=== PATIENT | female | born 1935 | race Caucasian/White ===

== ENCOUNTER 2017-04-04 18:42 | Emergency (ER) | payer OTHER ==
[~2017-04-04] VITALS: Ht 167.6 cm; Wt 76.2 kg
[~2017-04-04 18:42] MED LIST: AMIT25 PO; AMLO5 PO; ATEN50; BAYER CHEWABLE81 MG PO; BP MEDS; CARB100ER PO; CEPH500 PO; CODASP30; CYCL10 PO; DIURETIC; EYE HEALTH ADU1 EACH PO; HYDACE5 PO; HYDCHL25 PO; Hair, Skin & N1 EACH PO; LISI10; Melatonin5 MG PO; Vitamin C100 M1 PO; ZESTORETIC 20-121 EA
[2017-04-04 19:11] LABS: BASOPHILS ABSOLUTE AUTO 0.02 K/mm3 (0.00-0.23); BASOPHILS PERCENT AUTO 0 % (0-2); EOSINOPHILS ABSOLUTE AUTO 0.05 K/mm3 (0.00-0.68); EOSINOPHILS PERCENT AUTO 1 % (0-6); Hematocrit 42.7 % (33.0-51.0); Hemoglobin 14.7 g/dL (11.5-16.0); IMMATURE GRAN ABSOLUTE AUTO 0.02 K/mm3 (0.00-0.10); IMMATURE GRAN PERCENT AUTO 0 % (0-1); LYMPHOCYTES PERCENT AUTO 12 % (21-46); MONOCYTES ABSOLUTE AUTO 0.56 K/mm3 (0.16-1.47); MONOCYTES PERCENT AUTO 7 % (4-13); Mean Corpuscular HGB 34.9 pg (26.0-34.0); Mean Corpuscular HGB Conc 34.4 g/dL (31.5-36.5); Mean Corpuscular Volume 101 fL (80-100); Mean Platelet Volume 9.7 fL (9.1-12.4); NEUTROPHILS ABSOLUTE AUTO 6.93 K/mm3 (1.96-9.15); NEUTROPHILS PERCENT AUTO 81 % (41-73); Platelet Count 258 K/mm3 (150-400); RDW Standard Deviation 43.9 fL (35.1-46.3); Red Blood Cell Count 4.21 M/mm3 (3.80-5.20); White Blood Cell Count 8.58 K/mm3 (4.00-11.30)
[2017-04-04 19:23] LABS: International Normalized Ratio 1.15
[2017-04-04 19:30] LABS: Alanine Aminotransfer (ALT/SGP 120 U/L (12-78); Albumin, Blood 3.1 g/dL (3.4-5.0); Albumin/Globulin Ratio 0.8 (0.8-1.8); Alk Phos 111 U/L (50-136); Anion Gap 8 mmol/L (6-16); Aspartate Aminotrans (AST/SGOT 208 U/L (12-37); Bilirubin, Total 1.2 mg/dL (0.1-1.0); Blood Urea Nitrogen 18 mg/dL (8-24); Bun/Creatinine Ratio 33.3 (12.0-20.0); CO2, Blood 30 mmol/L (21-32); Calcium, Blood 9.6 mg/dL (8.5-10.1); Chloride, Blood 96 mmol/L (98-108); Creatinine, Blood 0.54 mg/dL (0.40-1.00); Globulin, Blood 3.9 g/dL (2.2-4.0); Glomerular Filtration Rate >60 (60-); Glucose, Blood 136 mg/dL (70-99); Potassium, Blood 3.1 mmol/L (3.5-5.5); Sodium, Blood 134 mmol/L (136-145); Troponin I <0.015 ng/mL (0.000-0.040)
[2017-04-04 20:08] LABS: Source, Urine Catheter
[2017-04-04 20:12] LABS: Bilirubin, Urine Neg (Neg); Blood, Urine Neg (Neg); Glucose Qualitative, Urine Neg (Neg); Ketones, Urine 1+ (Neg); Leukocyte Esterase, Urine Neg (Neg); Nitrite, Urine Neg (Neg); Protein, Urine Neg (Neg); Specific Gravity, Urine 1.015 (1.003-1.022); Urobilinogen, Urine NORM (Normal)
[2017-04-04 20:17] LABS: Appearance, Urine Clear (Clear); Color, Urine Yellow (P-Yellow)
[2017-12-16] MEDS ORDERED: ZESTORETIC 20-121 EA PO (17:16)
[2017-12-16] MEDS ORDERED: CLOB.05TO TOP (17:17)
[2017-12-16] MEDS ORDERED: MAGNESIUM PO (17:17)
[2018-01-14] MEDS ORDERED: ASPI325 PO (07:07)
[2018-01-14] MEDS ORDERED: OXYC5 PO (07:15)
[2018-01-15] MEDS ORDERED: MUPI1NAS (08:03)
== END 2017-04-05 00:40 | disposition short-term general hospital (02) ==
LOC: ER 18:42
PROVIDERS: Physician Assistant
DX: K80.70 Calculus of gallbladder and bile duct without cholecystitis without obstruction (principal); I10 Essential (primary) hypertension; Z79.899 Other long term (current) drug therapy; Z79.82 Long term (current) use of aspirin; Z95.0 Presence of cardiac pacemaker; Z96.649 Presence of unspecified artificial hip joint
CPT/HCPCS: 36415; 74176; 80053; 81003; 83605; 84484; 85025; 85610; 87040; 87086; 93005; 93010; 96365; 96366; 96368; 96375; 99285; J1956; J2001; J2405; J3010; J3480; J7050

== ENCOUNTER 2019-01-08 06:04 | Day surgery (SDC) | payer OTHER ==
[~2019-01-08] VITALS: Ht 162.6 cm; Wt 79.3 kg
[~2019-01-08 06:04] MED LIST changes: +ASPI325 PO; +Aspir 8181 MG PO; +CLOB.05TO TOP; +MAGNESIUM PO; +MUPI1NAS; +OXYC5 PO; +PRENATAL TABLE1 EAC2 PO; +Reclast 55 MG/100 M IV; +TUMS500 MG PO; +ZESTORETIC 20-121 EA PO
--- NOTE | 2019-01-08 06:49 | NUR ---
INTO SDS IN WC. VSS ALERT ORIENTED NO FAMILY WITH PATIENT STATES MAY COME IN LATER.
--- NOTE | 2019-01-08 15:10 | NUR ---
SHIFT SUMMARY S/P L TKA TODAY. VSS. PT RECEIVING PO PAIN MEDS AND SCHEDULED TORADOL AND TYLENOL FOR PAIN. AQUACEL DRESSING TO L KNEE IS CDI WITH POLAR PACK IN PLACE. PT WORKED WITH THERAPY AND IS UP IN CHAIR WITH BLE ELEVATED. PT VOIDING. IVF INFUSING PER ORDERS. PT SLOWLY TOLERATING REG FOODS. CALL LIGHT WITHIN REACH.
[2019-01-09 04:12] LABS: BASOPHILS ABSOLUTE AUTO 0.01 K/mm3 (0.00-0.23); BASOPHILS PERCENT AUTO 0 % (0-2); EOSINOPHILS PERCENT AUTO 0 % (0-6); Hemoglobin 11.5 g/dL (11.5-16.0); IMMATURE GRAN ABSOLUTE AUTO 0.02 K/mm3 (0.00-0.10); IMMATURE GRAN PERCENT AUTO 0 % (0-1); LYMPHOCYTES PERCENT AUTO 10 % (21-46); MONOCYTES ABSOLUTE AUTO 0.91 K/mm3 (0.16-1.47); MONOCYTES PERCENT AUTO 10 % (4-13); Mean Corpuscular HGB Conc 33.8 g/dL (31.5-36.5); Mean Corpuscular Volume 103 fL (80-100); Mean Platelet Volume 9.8 fL (9.1-12.4); NEUTROPHILS ABSOLUTE AUTO 7.48 K/mm3 (1.96-9.15); NEUTROPHILS PERCENT AUTO 80 % (41-73); Platelet Count 148 K/mm3 (150-400); RDW Coefficient Variation 12.2 % (11.7-14.2); RDW Standard Deviation 46.5 fL (35.1-46.3); Red Blood Cell Count 3.29 M/mm3 (3.80-5.20); White Blood Cell Count 9.32 K/mm3 (4.00-11.30)
[2019-01-09 04:28] LABS: Anion Gap 6 mmol/L (6-16); Blood Urea Nitrogen 20 mg/dL (8-24); Bun/Creatinine Ratio 28.9 (12.0-20.0); CO2, Blood 29 mmol/L (21-32); Calcium, Blood 7.8 mg/dL (8.5-10.1); Chloride, Blood 104 mmol/L (98-108); Creatinine, Blood 0.69 mg/dL (0.40-1.00); Glomerular Filtration Rate >60 (60-); Glucose, Blood 128 mg/dL (70-99); Magnesium, Blood 2.1 mg/dL (1.6-2.4); Potassium, Blood 3.7 mmol/L (3.5-5.5); Sodium, Blood 139 mmol/L (136-145)
--- NOTE | 2019-01-09 05:18 | NUR ---
patient alert and oriented x4. VSS. Saline locked. Mild complaints of pain to R knee. Ambulating to bathroom with FWW. Polar ice applied to R knee. Medicated as ordered. Call light within reach. Patient rested comfortably.
[2019-01-09] MEDS ORDERED: ACET500 PO (13:20)
[2019-01-09] MEDS ORDERED: OXYC5 PO (13:20)
--- NOTE | 2019-01-09 19:36 | NUR ---
SHIFT SUMMARY PAIN HAS BEEN MANAGED WITH PO PAIN MEDICATION. VENOUS DUPLEX SCAN TO RULE OUT DVT WAS COMPLETED LATE THIS AFTERNOON, TEST WAS ORDERED STAT. PT IS A 1 ASSIST WHEN OOB. FAMILY WAS UNABLE TO PICK PRESCRIPTION UP IN TIME TO GET TO THE PHARMACY. DR. WILLAMS NOTIFIED AND DISCHARGE CANCELLED FOR TODAY. REPORT GIVEN TO NURA NAM.
--- NOTE | 2019-01-10 04:50 | NUR ---
SHIFT SUMMARY PT POD#2 LEFT TKA. AAOX4. DISCOMFORT CONTROLLED WITH 5MG PO ROXICODONE Q4P. NO NAUSEA/EMESIS. DRESSING TO LEFT KNEE C/D/I. PT UP TO RESTROOM SBA WITH FWW, TOLERATES WELL. PT RESTED WELL T/O NIGHT. ENCOURAGE AMBULATION TODAY TOLERATED. PT RESTING AT THIS TIME, CALL LIGHT IN REACH.
--- NOTE | 2019-01-10 12:41 | NUR ---
DISCHARGE DR. WILLAMS ROUNDED ON PT PRIOR TO DISCHARGE. PT WAS GIVEN DISCHARGE INSTRUCTIONS YESTERDAY AND DENIED NEED FOR STAFF TO REVIEW INSTRUCTIONS. PT ESCORTED OUT IN W/C.
--- NOTE | 2019-01-12 13:09 | NUR ---
01/12/19 1309 Koki Shah VERIFICATIONS: EDIT CHART.
== END 2019-01-10 12:34 | disposition home or self-care (01) ==
LOC: ORSCMMR 06:04 → ORD 09:00 → ORSCMMR 09:00 → SURS 10:57 → ORSCMMR 01-10 12:34
PROVIDERS: Orthopaedic Surgery
PROC: 0SRD0J9 Replacement of Left Knee Joint with Synthetic Substitute, Cemented, Open Approach (ICD-10-PCS; principal; 2019-01-08 07:30)
DX: M17.12 Unilateral primary osteoarthritis, left knee (principal); I10 Essential (primary) hypertension; I49.9 Cardiac arrhythmia, unspecified; Z95.0 Presence of cardiac pacemaker; Z79.899 Other long term (current) drug therapy; Z79.82 Long term (current) use of aspirin
CPT/HCPCS: 36415; 73560-LT; 80048; 83735; 85025; 88300; 93971; 97116; 97161; 97530; C1713; C1776; J0171; J0690; J0735; J1100; J1885; J2250; J2405; J2704; J2795; J3010; J3370; J7120; Q0163

== ENCOUNTER 2020-09-09 09:17 | Inpatient (IN) | payer OTHER ==
[~2020-09-09] VITALS: Ht 172.7 cm; Wt 77.0 kg
[~2020-09-09 09:17] MED LIST changes: +ACET500 PO
[2020-09-09 09:35] LABS: Calcium, Ionized (POC) 1.01 mmol/L (1.10-1.46); Chloride (POC) 99 mmol/L (98-108); Creatinine (POC) 3.4 mg/dL (0.6-1.0); Glucose (ISTAT POC) 135 mg/dL (70-99); Hemoglobin (POC) 16.7 g/dL (12.0-16.0); Potassium (POC) 3.3 mmol/L (3.5-5.5); Sodium (POC) 133 mmol/L (135-148); Total CO2 (POC) 15 mmol/L (21-32)
[2020-09-09 09:39] LABS: Base Excess Venous -21.3 mmol/L; Bicarbonate Venous 10.6 mmol/L (24.0-30.0); PCO2 Venous 31.9 mmHg (38-42); PO2 Venous 173 mmHg (38-42)
[2020-09-09 09:40] LABS: pH Blood Venous 7.06 (7.34-7.37)
[2020-09-09 09:46] LABS: Hematocrit 49.3 % (33.0-51.0); Hemoglobin 16.2 g/dL (11.5-16.0); Mean Corpuscular HGB 33.4 pg (26.0-34.0); Mean Corpuscular HGB Conc 32.9 g/dL (31.5-36.5); Mean Corpuscular Volume 102 fL (80-100); Mean Platelet Volume 11.1 fL (9.1-12.4); NRBC ABSOLUTE 0.02 K/mm3 (0.00-0.02); NRBC Auto 0.3 /100 WBC (0.0-0.2); Platelet Count 133 K/mm3 (150-400); Red Blood Cell Count 4.85 M/mm3 (3.80-5.20); White Blood Cell Count 7.22 K/mm3 (4.00-11.30)
[2020-09-09 09:53] LABS: Source, Urine Catheter
[2020-09-09 10:03] LABS: Appearance, Urine Clear (Clear); Bilirubin, Urine Neg (Neg); Blood, Urine 2+ (Neg); Color, Urine Yellow (P-Yellow); Glucose Qualitative, Urine 1+ (Neg); Ketones, Urine 1+ (Neg); Leukocyte Esterase, Urine 1+ (Neg); Nitrite, Urine Neg (Neg); Protein, Urine 2+ (Neg); Urobilinogen, Urine 1+ (Normal)
[2020-09-09 10:14] LABS: BAND PERCENT MAN 45 % (0-8); BASOPHILS PERCENT MAN 0 % (0-2); EOSINOPHILS PERCENT MAN 0 % (0-6); LYMPHOCYTES ABSOLUTE MAN 0.93 K/mm3 (0.84-5.20); LYMPHOCYTES PERCENT MAN 13 % (21-46); METAMYELOCYTE ABSOLUTE MAN 0.14 K/mm3 (0.00-0.00); METAMYELOCYTE PERCENT MAN 2 % (0-0); MONOCYTES ABSOLUTE MAN 0.28 K/mm3 (0.16-1.47); MONOCYTES PERCENT MAN 4 % (4-13); MYELOCYTE ABSOLUTE MAN 0.14 K/mm3 (0.00-0.00); MYELOCYTE PERCENT MAN 2 % (0-0); SEG NEUTROPHILS PERCENT MAN 34 % (41-73); TOTAL CELLS COUNTED 100
[2020-09-09 10:17] LABS: Alanine Aminotransfer (ALT/SGP 61 U/L (12-78); Albumin/Globulin Ratio 0.5 (0.8-1.8); Alk Phos 112 U/L (50-136); Anion Gap 25 mmol/L (6-16); Aspartate Aminotrans (AST/SGOT 150 U/L (12-37); Bilirubin, Total 1.4 mg/dL (0.1-1.0); Blood Urea Nitrogen 51 mg/dL (8-24); Bun/Creatinine Ratio 19.2 (12.0-20.0); CO2, Blood 12 mmol/L (21-32); Calcium, Blood 8.8 mg/dL (8.5-10.1); Chloride, Blood 96 mmol/L (98-108); Creatinine, Blood 2.65 mg/dL (0.40-1.00); Ethanol (Alcohol), Blood, Med <3 mg/dL; Globulin, Blood 4.3 g/dL (2.2-4.0); Glomerular Filtration Rate 18 (60-); Glucose, Blood 138 mg/dL (70-99); Potassium, Blood 3.3 mmol/L (3.5-5.5); Sodium, Blood 133 mmol/L (136-145); Total Protein, Blood 6.3 g/dL (6.4-8.2); Troponin I 0.218 ng/mL (0.000-0.040)
[2020-09-09 10:19] LABS: CPK Creatine Kinase 2596 U/L (26-193)
[2020-09-09 10:23] LABS: Red Blood Cells, Urine 0-2 /hpf (0-2)
[2020-09-09 10:24] LABS: Bacteria Few /hpf; Squamous Epithelial Cells Few /hpf (Few); WBC Cast 0-2 /lpf (0)
[2020-09-09 10:29] LABS: U Amphetamine Screen Not Detected; U Barbituate Screen Not Detected; U Benzodiazapine Screen Not Detected; U Buprenorphine Screen Not Detected; U Cannabinoids Screen Not Detected; U Cocaine Screen Not Detected; U Methadone Screen Not Detected; U Methamphetamine Screen Not Detected; U Opiates Screen DETECTED; U Oxycodone Screen Not Detected; U Phencyclidine Screen Not Detected; U Propoxyphene Screen Not Detected
[2020-09-09 10:29] LABS: International Normalized Ratio 1.57; Prothrombin Time Results 16.5 Sec (9.7-11.5)
[2020-09-09 10:48] LABS: Creatine Kinase MB Index 1.8 (0.0-4.0)
[2020-09-09] MEDS ORDERED: Lisinopril-Hct1 EAC4 PO (12:28)
[2020-09-09 12:30] LABS: Source, Urine Catheter
[2020-09-09 12:38] LABS: Appearance, Urine Turbid (Clear); Blood, Urine 5+ (Neg); Color, Urine Yellow (P-Yellow); Glucose Qualitative, Urine 1+ (Neg); Ketones, Urine 1+ (Neg); Leukocyte Esterase, Urine 1+ (Neg); Nitrite, Urine Pos (Neg); Protein, Urine 3+ (Neg); Urobilinogen, Urine 4+ (Normal)
[2020-09-09 12:47] LABS: Bilirubin, Urine 2+ (Neg)
[2020-09-09 12:54] LABS: Amorphous Light (0-Heavy); Bacteria Mod /hpf
[2020-09-09 12:56] LABS: Squamous Epithelial Cells Few /hpf (Few)
[2020-09-09 12:57] LABS: Renal Epithelial Few /hpf (0-Rare)
[2020-09-09 15:30] LABS: Hematocrit 37.7 % (33.0-51.0); Hemoglobin 12.3 g/dL (11.5-16.0); Mean Corpuscular HGB 33.1 pg (26.0-34.0); Mean Corpuscular HGB Conc 32.6 g/dL (31.5-36.5); Mean Corpuscular Volume 101 fL (80-100); Mean Platelet Volume 11.2 fL (9.1-12.4); NRBC ABSOLUTE 0.05 K/mm3 (0.00-0.02); NRBC Auto 0.7 /100 WBC (0.0-0.2); Platelet Count 109 K/mm3 (150-400); RDW Coefficient Variation 13.3 % (11.7-14.2); RDW Standard Deviation 50.1 fL (35.1-46.3); Red Blood Cell Count 3.72 M/mm3 (3.80-5.20); White Blood Cell Count 7.42 K/mm3 (4.00-11.30)
[2020-09-09 15:38] LABS: Base Excess Venous -16.7 mmol/L; Bicarbonate Venous 11.4 mmol/L (24.0-30.0); PCO2 Venous 59.3 mmHg (38-42); PO2 Venous 37.6 mmHg (38-42)
[2020-09-09 15:39] LABS: pH Blood Venous 6.99 (7.34-7.37)
[2020-09-09 15:53] LABS: BAND PERCENT MAN 21 % (0-8); BASOPHILS PERCENT MAN 0 % (0-2); EOSINOPHILS PERCENT MAN 0 % (0-6); LYMPHOCYTES % ATYPICAL MANUAL 2 % (0-0); LYMPHOCYTES ABSOLUTE MAN 1.26 K/mm3 (0.84-5.20); LYMPHOCYTES PERCENT MAN 15 % (21-46); METAMYELOCYTE ABSOLUTE MAN 1.55 K/mm3 (0.00-0.00); METAMYELOCYTE PERCENT MAN 21 % (0-0); MONOCYTES ABSOLUTE MAN 0.07 K/mm3 (0.16-1.47); MONOCYTES PERCENT MAN 1 % (4-13); MYELOCYTE ABSOLUTE MAN 0.29 K/mm3 (0.00-0.00); MYELOCYTE PERCENT MAN 4 % (0-0); NEUTROPHILS ABSOLUTE MAN 4.22 K/mm3 (1.96-9.15); SEG NEUTROPHILS PERCENT MAN 36 % (41-73); TOTAL CELLS COUNTED 100
[2020-09-09 16:01] LABS: Troponin I 0.313 ng/mL (0.000-0.040)
--- NOTE | 2020-09-09 16:05 | NUR ---
ADMIT PT ARRIVED TO ICU 2 AROUND 1330. PT ARRIVED OBTUNDED, GUPPY BREATHING ON THE NONREBREATHER, DARKLY MOTTLED FROM THE WAIST DOWN, LEVOPHED AND BICARB GTT INFUSING. DR. STERN TO THE BEDSIDE AND DECISION MADE TO INTUBATE. 10MG ETOMIDATE AND 10MG JESSIE GIVEN THEN PT INTUBATED AT 1356 WITH A 7.5 TUBE, 23CM AT THE LIP WITH GOOD COLOR CHANGE AND BILATERAL BREATH SOUNDS. DR. WOODALL TO THE BEDSIDE TO EVALUATE PT AND THEN ENDED UP PLACING A CENTRAL LINE SINCE DR. STERN WAS CALLED EMERGENTLY TO ANOTHER PT'S ROOM. ATTEMPTED TO PLACE OG AFTER CENTRAL LINE DONE, BUT IT WOULD NOT GO DOWN. KEPT HITTING SOMETHING AT THE BACK OF THE THROAT AND CURLING. MULTIPLE ATTEMPTS MADE BY THIS RN AND VIV SAEED TO PLACE OG BUT UNABLE. DR. STERN NOTIFIED AND OK WITH PT NOT HAVING OG AT THIS TIME. PROPOFOL STARTED PT STARTING TO BITE THE TUBE AND WINCE WITH OG PLACEMENT ATTEMPTS. LEVOPHED SLOWLY TITRATED UP AND IS CURRENTLY AT 14 MCG/MIN. AFTER MULTIPLE ATTEMPTS DR. WOODALL WAS ABLE TO CONTACT FAMILY AND PT'S SON CAME TO THE BEDSIDE. DR. WOODALL HAD VERY HONEST CONVERSATION WITH THEM ABOUT PT'S PROGNOSIS. PALLIATIVE CARE CALLED FOR FAMILY SUPPORT WELL. CONTINUING TO MONITOR. DR. WOODALL STILL DISCUSSING CASE WITH FAMILYTO DECIDE PLAN OF CARE.
[2020-09-09 16:19] LABS: Albumin, Blood 1.4 g/dL (3.4-5.0); Albumin/Globulin Ratio 0.4 (0.8-1.8); Bilirubin, Total 1.4 mg/dL (0.1-1.0); Bun/Creatinine Ratio 20.7 (12.0-20.0); Calcium, Blood 6.9 mg/dL (8.5-10.1); Creatinine, Blood 2.41 mg/dL (0.40-1.00); Globulin, Blood 3.2 g/dL (2.2-4.0); Potassium, Blood 4.9 mmol/L (3.5-5.5); Total Protein, Blood 4.6 g/dL (6.4-8.2)
--- NOTE | 2020-09-09 17:01 | NUR ---
Spiritual care visit conducted. Patient's spouse, Shakeel, is bedside and is emotional at times. We discuss the events that led to her hospitalization, their life together through the last 65 yrs, and about the trauma that he experienced while patient was down. I provide therapeutic listening, anticipatory grief support and a Last Rites sort of prayer (patient has a Orthodox background). Shakeel responds well and shows signs of increased peace. He states that he will wait to talk with his Middle son before any decisions are made. [employer] services remain available.
--- NOTE | 2020-09-09 19:25 | NUR ---
pt became ill and went to ER. family notified
--- NOTE | 2020-09-09 20:19 | NUR ---
SHIFT ASSESSMENT ASSUMED CARE OF PT @ 1900. BEDSIDE REPORT RECEIVED FROM VIV CRAIN. PT INTUBATED AND SEDATED. VENT SETTINGS AC: 24/350/70%/5 c O2 SATS >90%. PROPOFOL GTT INITIALLY @ 20MCG/KG/MIN, NOREPINEPHRINE @ 20MCG/MIN, VASOPRESSIN @ 0.04U/MIN c MAP >55. PROPOFOL RATE DECREASED TO 10MCG/KG/MIN DUE TO PERSISTENT HYPOTENSION. PT DOES NOT RESPOND TO STIMULI. NO VOLUNTARY BREATHS, PT RELYING ON THE VENTILATOR TO MAINTAIN RR. SKIN IS MOTTLED FROM HIPS DOWN. FAINT RADIAL PULSES, UNABLE TO PALPATE PEDAL PULSES. PTS HYPOTENSION CONTINUED AFTER PROPOFOL GTT WAS DECREASED. UNABLE TO OBTAIN A SYSTOLIC BP, ONLY A MAP. PTS CARDIAC RYTHM ALSO BEGAN CHANGING AT THIS TIME, RATE INCREASED FROM 60'S TO 120'S. DR STERN NOTIFIED, WE DISCUSSED TREATMENT PLANS AND DUE TO THE EXTENUATING CIRCUMSTANCES INVOLVING PTS PRIMARY DECISION MAKER, HER SPOUSE, PTS SON IS THE ALTERNATE DECISION MAKER. PTS SON, HAYLIE WAS CONTACTED. THIS NURSE DISCUSSED PTS WORSENING CONDITION WITH HAYLIE. HAYLIE SPOKE WITH FAMILY AND DECIDED TO TRANSITION PT STATUS TO DNR. DR STERN NOTIFIED, SHE AGREED WITH THIS DECISION. FRANCISCO, SIGN BUILDER SUPERVISOR ALSO SPOKE WITH HAYLIE TO CONFIRM THE TRANSITION TO DNR STATUS. THIS NURSE, CHARGE NURSE FRANCISCO, AND HOSPITALIST JACKI RETURNED TO PT ROOM WHERE PT WAS HAVING RUNS OF WIDE COMPLEX TACHYCARDIA, THEN BACK TO PACED RYTHM @ 60. WHEN RATE RETURNED TO 60, BP AND OXYGEN SATURATION WERE UNOBTAINABLE. THIS NURSE AND JACKI HOSPITALIST PALPATED FOR PULSE AND AUSCALTED THE HEART. TIME OF ANNOUNCED AT 1926 VIA HOSPITALISTJACKI. DUE TO PT HAVING A PACEMAKER, RAILROAD SIGNAL TECHNICIAN CONTINUED TO SHOW ELECTRICAL ATCTIVITY @ 60BPM. SON, HAYLIE NOTIFIED OF TOD. PALLIATIVE CARE NURSE LEV ASSISTING WITH FAMILY CARE. VIV SINGH NOTIFIED SENIOR LEAD SOFTWARE ENGINEER OF , CURRENTLY AWAITING CALL BACK. PLANS OF RELEASING BODY TO [facility], INFORMED HAYLIE OF THESE PLANS.
== END 2020-09-09 19:37 | DRG 871 ==
LOC: ER 09:17 → ICUW 11:55 → ICUE 12:57
PROVIDERS: Emergency Medicine; Internal Medicine Pulmonary Disease; ADMIT Internal Medicine
PROC: 5A1935Z Respiratory Ventilation, Less than 24 Consecutive Hours (ICD-10-PCS; principal; 2020-09-09)
PROC: 0BH17EZ Insertion of Endotracheal Airway into Trachea, Via Natural or Artificial Opening (ICD-10-PCS; 2020-09-09)
PROC: 06HY33Z Insertion of Infusion Device into Lower Vein, Percutaneous Approach (ICD-10-PCS; 2020-09-09)
PROC: 3E033XZ Introduction of Vasopressor into Peripheral Vein, Percutaneous Approach (ICD-10-PCS; 2020-09-09)
DX: A41.9 Sepsis, unspecified organism (principal); R65.21 Severe sepsis with septic shock; G92 Toxic encephalopathy; N17.0 Acute kidney failure with tubular necrosis; K55.019 Acute (reversible) ischemia of small intestine, extent unspecified; E87.1 Hypo-osmolality and hyponatremia; M62.82 Rhabdomyolysis; E87.2 Acidosis; Z51.5 Encounter for palliative care; Z66 Do not resuscitate; E87.6 Hypokalemia; Z88.5 Allergy status to narcotic agent; Z96.652 Presence of left artificial knee joint; Z79.899 Other long term (current) drug therapy; Z79.82 Long term (current) use of aspirin; F03.90 Unspecified dementia, unspecified severity, without behavioral disturbance, psychotic disturbance, mood disturbance, and anxiety; Z95.0 Presence of cardiac pacemaker; I10 Essential (primary) hypertension; R79.89 Other specified abnormal findings of blood chemistry; Z78.1 Physical restraint status
CPT/HCPCS: 31500; 36415; 36556; 51702; 70450; 71045; 72125; 72170; 74176; 80047; 80053; 81001; 82550; 82553; 82803; 82947; 83605; 84484; 85014; 85025; 85610; 85730; 87040; 87077; 87086; 87147; 87186; 93005; 93010; 94002; 96365-59; 96366-59; 96367-59; 96368; 96375-59; 96376-59; 99285-25; C1751; G0480; J0696; J1720; J2405; J2704; J3010; J3370; J7030; J7060